=== PATIENT | female | born 1965 | race Caucasian/White ===

== ENCOUNTER 2016-06-25 14:25 | Emergency (ER) | payer OTHER ==
[~2016-06-25] VITALS: Ht 175.3 cm; Wt 59.1 kg
[~2016-06-25 14:25] MED LIST: ALPR0.25 PO; FLUO40CA12 PO; NAPR500T PO; ZLP10T PO
[2016-06-25 14:27] VITALS: BP 128/88; PULSE 73; RESP 18; O2SAT 96
--- NOTE | 2016-06-25 15:07 | ED.REPORT ---
HPI-Abd Pain F 40 and Over Date of Service Jun 25, 2016 ED Provider: David Koehler MD A 51 year old female with a history of recent illness following a vacation to [place] presents to the ED complaining of a possible kidney infection. She began to experience lower abdominal "burning" three days ago, accompanied by nausea, fatigue, low grade fever, chills, constipation, and kidney pain. Her last bowel movement was five days ago. She denies vomiting, dysuria, or changes in eating or drinking habits. The kidney pain became severe enough this morning that she saw her PCP. She was referred to the ED after being diagnosed with a UTI. The pt has no history of similar symptoms. Nursing Notes Stated Complaint: POSSIBLE UTI AND SORE KIDNEYS Chief Complaint: Female Abdominal Pain Nursing Notes Reviewed: Yes Allergies: Coded Allergies: No Known Allergies (Unverified , 06/25/16) Scheduled Cephalexin (Cephalexin) 500 Mg Capsule 500 MG PO QID Fluoxetine (Prozac) 40 Mg Capsule 40 MG PO DAILY Scheduled PRN Alprazolam (Xanax) 0.25 Mg Tablet 0.25 MG PO QID PRN PRN For Anxiety Hydrocodone-Acetaminophen 5-325 mg (Hydrocodone-Acetaminophen 5-325 mg) 1 Each Tablet 1-2 TABLET PO Q4H PRN PRN For Pain Naproxen (Naprosyn) 500 Mg Tablet 500 MG PO BID PRN PRN For Pain Ondansetron ODT (Zofran ODT) 4 Mg Tablet 4 MG PO Q4H PRN PRN For Nausea Zolpidem (Ambien) 10 Mg Tablet 10 MG PO HS PRN PRN For Insomnia General Time Seen by MD: 15:06 Chief Complaint Flank pain left Hx Obtained From: Patient Arrived By: Walk-in Sudden in Onset?: No Onset Occurred: 3 days ago Symptom Duration: Since onset Recent Healthcare: No recent hospitalization, Recent doctor visit Similar Sx Previous: No Past Medical History Past Medical History depression anxiety Past Surgical History Reports: Tonsillectomy Smoking History Former Smoker Social History Alcohol Use: "Social" Ambulatory Status Independent Review of Systems denies changes in eating or drinking habits Constitutional: Reports: Chills, Fatigue, Fever Respiratory: Denies: Non-productive cough, Shortness of breath Cardiovascular: Denies: Chest pain GI: Reports: Abdominal pain, Constipation, Nausea, Denies: Diarrhea, Vomiting Female: Reports: Flank pain, Denies: Dysuria Musculoskeletal: Denies: Back pain, Neck pain Complete sys rev & neg: except as marked. Physical Exam Vital Signs Vital Signs (First) Date Time Temp Pulse Resp B/P Pulse Ox O2 Delivery O2 Flow Rate FiO2 06/25/16 14:27 36.4 73 18 128/88 96 Room Air Initial VS: Reviewed General/Constitutional: Awake, Alert Respiratory / Chest: Atraumatic, Breath sounds NL, Breath sounds = bilat, No respiratory distress Cardiovascular: Heart rate NL, Regular rhythm, Heart sounds NL Abdomen: Atraumatic, Soft, BS normoactive left periumbilical tenderness Back: Atraumatic, Full range of motion left CVAT Head / Eyes: Atraumatic, Normocephalic, PERRL, EOMI ENT: Atraumatic, Airway patent, Mucous membranes moist Skin: Atraumatic, Color NL, No rash, Warm, Dry Neurologic: Oriented X3, Speech NL, No motor deficits, No sensory deficits Neck: Atraumatic, Supple, Full range of motion Upper Extremity / MS: Atraumatic, Full range of motion Lower Extremity / Pelvis / MS: Atraumatic, Full range of motion Psychiatric: Affect NL, Mood NL Interpretation & Diagnostics Lab Results Interpretation Result Diagram: 06/25/16 1535 06/25/16 1535 Test 06/25/16 15:15 06/25/16 15:35 06/25/16 16:02 Hold Urine Received (Received) White Blood Count 9.9th/mm3 (3.8-10.1) Red Blood Count 3.99mil/mm3 (3.90-5.20) Hemoglobin 12.7g/dL (12.0-15.6) Hematocrit 37.3% (35.0-46.0) Mean Corpuscular Volume 93.5fL (81-100) Mean Corpuscular Hemoglobin 31.8pg (27.0-35.0) Mean Corpuscular Hemoglobin Concent 34.0% (32.0-37.0) Red Cell Distribution Width 12.1% (12.3-15.4) Platelet Count 279bil/L (150-400) Neutrophils (%) (Auto) 80.5% (40-74) Lymphocytes (%) (Auto) 9.7% (14-46) Monocytes (%) (Auto) 8.4% (4-12) Eosinophils (%) (Auto) 1.1% (0-5) Basophils (%) (Auto) 0.2% (0-3) Sodium Level 135mEq/L (134-144) Potassium Level 3.7mEq/L (3.5-5.2) Chloride Level 95mEq/L (97-108) Carbon Dioxide Level 24mmol/L (18-29) Blood Urea Nitrogen 16mg/dL (6-24) Creatinine 0.77mg/dL (0.57-1.00) Estimat Glomerular Filtration Rate 112mL/min (>59) Glucose Level 103mg/dL (60-99) Lactic Acid Level 1.2mmol/L (0.4-2.0) Calcium Level 9.3mg/dL (8.5-10.1) Total Bilirubin 0.8mg/dL (0.0-1.2) Aspartate Amino Transf (AST/SGOT) 19U/L (0-50) Alanine Aminotransferase (ALT/SGPT) 16U/L (0-32) Alkaline Phosphatase 65U/L (25-150) Total Protein 6.9g/dL (6.4-8.4) Albumin 4.0g/dL (3.4-5.0) Urine Color Straw (YELLOW) Urine Appearance Cloudy (CLEAR,HAZY) Urine pH 6.5 (5.0-8.0) Urine Specific [place] 1.010 (1.003-1.035) Urine Protein Tracemg/dL (NEG,TRACE) Urine Glucose (UA) Negativemg/dL (NEGATIVE) Urine Ketones Negativemg/dL (NEGATIVE) Urine Occult Blood Moderate (NEGATIVE) Urine Nitrite Negative (NEGATIVE) Urine Bilirubin Negative (NEGATIVE) Urine Urobilinogen Normalmg/dL (NORMAL) Urine Leukocyte Esterase Moderate (NEGATIVE) Urine RBC 3-10/hpf (0-2) Urine WBC Packed/hpf (0-5) Urine Epithelial Cells Moderate/hpf (NONE-MOD) Urine Crystals None seen (NONE SEEN) Urine Bacteria Many/hpf (NONE-FEW) Urine Hyaline Casts None/lpf (NONE) Urine Granular Casts None seen (NONE SEEN) Urine Waxy Casts None seen (NONE SEEN) Urine Red Blood Cell Casts None seen (NONE SEEN) Urine White Blood Cell Casts None seen (NONE SEEN) Urine Mucus None seen (None Seen) Urine Trichomonas None seen (NONE SEEN) Urine Yeast None (NONE SEEN) Urinalysis Comment Amorphous sediment Urine Culture Reflexed Indicated Re-Eval/Medical Decision Source of Hx: Old records Re-Evaluation/Progress #1: Time of Eval: 17:16 Patient Status: Condition improved Re-Evaluation/Progress Note: Pt rechecked, who is resting comfortably. She is informed of lab progress. Re-Evaluation/Progress #2: Time of Eval: 17:54 Patient Status: Condition improved Re-Evaluation/Progress Note: Pt rechecked, who is feeling well and prepared for discharge. Lab results, diagnosis, and the plan for discharge are discussed. The pt understands and agrees with the plan. All questions are addressed at this time. Counseled Regarding: Diagnosis, Lab results, Need for follow-up, When/why to return to ED Discharge & Departure Primary Impression: Pyelonephritis Disposition: Home Discharge Condition All VS Reviewed: Yes Condition: Stable Patient Instructions: Acute Pyelonephritis (ED) Additional Instructions: Emergency Department evaluation included interview, examination and laboratories. We started antibiotics with IV antibiotics that will cover you for 24 hours. Take cephalexen as prescibed, hydrocodone/apap 1-2 every 4 hours as needed for pain. ondansetron as needed for nausea. plan to rest, get adequate fluids and re-check with primary care in about 5 days. return to ED for uncontrolled pain, increasing weakness, frequent vomiting. Referrals: ARIK COBB MD (PCP) Carlos Attestation Portions of this note were transcribed by Roxy Delatorre I, Dr. Koehler personally performed the history, physical exam and medical decision-making; I reviewed and confirmed the accuracy of the information in the transcribed note. Signed by: Carlos Cunha, 06/25/16 and 18:40. copies to: ARIK COBB MD, Donald L MD Jun 25, 2016 15:07 ROXY DELATORRE Jun 25, 2016 15:28
[2016-06-25] MEDS ORDERED: 0.9% Sodium Chloride 1,000 ML IV ONE (15:19)
[2016-06-25] MEDS: HYDROmorphone 0.5 mg/0.5 mL iSecure Syringe IVPUSH PRN ×2 (15:59→17:03)
[2016-06-25] MEDS: Ondansetron 2 mg/mL 2 mL Inj IV PRN ×2 (15:59→17:03)
[2016-06-25] MEDS ORDERED: cefTRIAXone Inj 2 GM in IV Premix 1 EACH IV ONE (16:35)
[2016-06-25 16:36] LABS: BASOPHILS % (AUTO) 0.2 % (0-3); EOSINOPHILS % (AUTO) 1.1 % (0-5); MONOCYTES % (AUTO) 8.4 % (4-12); Mean Corpuscular Hemoglobin 31.8 pg (27.0-35.0); Mean Corpuscular Volume 93.5 fL (81-100); NEUTROPHILS % (AUTO) 80.5 % (40-74); Platelet Count 279 bil/L (150-400)
[2016-06-25] MEDS ORDERED: cefTRIAXone Inj 2,000 MG in Dextrose 5% Minibag Plus 50 ML IV ONE (16:43)
[2016-06-25 16:53] LABS: APPEARANCE,URINE CLOUDY (CLEAR,HAZY); COLOR,URINE STRAW (YELLOW); OCCULT BLOOD,URINE MODERATE (NEGATIVE); PH,URINE 6.5 (5.0-8.0); UROBILINOGEN,URINE NORMAL (NORMAL)
[2016-06-25] MEDS ORDERED: oxyCODONE-Acetamin 5-325 mg Tablet PO ONE (18:00)
[2016-06-25] MEDS ORDERED: HYDR-4003 PO (18:06)
[2016-06-25] MEDS ORDERED: CEPH500C PO (18:06)
[2016-06-25] MEDS ORDERED: ONDA4TAB9 PO (18:06)
[2016-06-25 18:26] VITALS: BP 129/82; PULSE 89; RESP 17; O2SAT 98
== END 2016-06-25 18:27 | disposition home or self-care (01) ==
LOC: SED 14:25
DX: N12 Tubulo-interstitial nephritis, not specified as acute or chronic (principal); B96.20 Unspecified Escherichia coli [E. coli] as the cause of diseases classified elsewhere; Z87.891 Personal history of nicotine dependence
CPT/HCPCS: 36415; 80053; 81000; 83605; 85025; 87086; 87088; 87186; 96361; 96365; 96372; 96375; 96376; 99285; J0696; J1170; J2405; J7030

== ENCOUNTER 2016-06-27 06:19 | Emergency (ER) | payer OTHER ==
[~2016-06-27] VITALS: Ht 175.3 cm; Wt 59.1 kg
[~2016-06-27 06:19] MED LIST changes: +CEPH500C PO; +HYDR-4003 PO; +ONDA4TAB9 PO
[2016-06-27 06:23] VITALS: BP 102/72; PULSE 78; RESP 16; O2SAT 97
--- NOTE | 2016-06-27 06:49 | ED.REPORT ---
HPI-General Illness Date of Service Jun 27, 2016 ED Provider: Deuce Sanon MD 51 year old female with no significant medical history who was seen and evaluated 06/25/16 due to concern for possible pyelonephritis. Her symptoms started 5 days ago with lower abd pain and dysuria. Two days ago she developed flank pain and was unable to walk without pain. Pt was then seen in the ED. Lab studies included CBC and CMP which were unremarkable as well as a UA that demonstrated moderate epithelial cells, many bacteria, moderate leuk esterase. She was given 1 dose of IV Ceftriaxone and discharged on Keflex and sent back by her PCP due to worsening symptoms today. After antibiotics her flank pain and dysuria has improved but now has fever (101), chills, malaise, constipation , fatigue, nausea, and headache.Pt denies cough, vomiting, vaginal discharge. Pt denies any history of STI's. Urine culture from that visit growing gram negative rods probably E.coli but susceptibilities have not yet shanika determined. Nursing Notes Stated Complaint: POSSIBLE KIDNEY INFECTION Chief Complaint: Back Pain or Injury Nursing Notes Reviewed: Yes Allergies: Coded Allergies: No Known Allergies (Unverified , 06/27/16) Scheduled Cephalexin (Cephalexin) 500 Mg Capsule 500 MG PO QID Fluoxetine (Prozac) 40 Mg Capsule 40 MG PO DAILY Sulfamethoxazole/Trimeth 800-160 mg (Bactrim DS) 1 Each Tablet 1 TABLET PO BID Scheduled PRN Alprazolam (Xanax) 0.25 Mg Tablet 0.25 MG PO QID PRN PRN For Anxiety Hydrocodone-Acetaminophen 5-325 mg (Hydrocodone-Acetaminophen 5-325 mg) 1 Each Tablet 1-2 TABLET PO Q4H PRN PRN For Pain Naproxen (Naprosyn) 500 Mg Tablet 500 MG PO BID PRN PRN For Pain Ondansetron ODT (Zofran ODT) 4 Mg Tablet 4 MG PO Q4H PRN PRN For Nausea Ondansetron ODT (Zofran ODT) 4 Mg Tablet 4 MG PO Q4H PRN PRN For Nausea Zolpidem (Ambien) 10 Mg Tablet 10 MG PO HS PRN PRN For Insomnia General Time Seen by : 06:41 Chief Complaint Fever, Not feeling well Hx Obtained From: Patient Arrived By: Walk-in Sudden in Onset?: No Onset Occurred: 5 days ago Symptom Duration: Since onset Location: : Back Quality: Painful Severity: Current: Mild Associated with: Reports: Fever, Headache, Nausea, Denies: Cough, Shortness of breath, Vomiting Relieved by: Prescription meds Recent Healthcare: Recent doctor visit Past Medical History Past Medical History depression anxiety Past Surgical History Reports: Tonsillectomy Smoking History Former Smoker Social History Alcohol Use: "Social" Ambulatory Status Independent Review of Systems Full Review of Systems Constitutional: Reports: Chills, Fatigue, Fever, Malaise Respiratory: Denies: Non-productive cough, Shortness of breath Cardiovascular: Denies: Chest pain GI: Reports: Constipation, Nausea, Denies: Abdominal pain, Diarrhea, Vomiting Female: Reports: Dysuria, Flank pain, Denies: Vaginal discharge Musculoskeletal: Denies: Extremity pain, Neck pain Skin: Denies Diaphoresis, Denies Rash Neurologic: Reports: Headache, Denies: Change LOC Complete sys rev & neg: except as marked. Physical Exam Vital Signs Vital Signs Date Time Temp Pulse Resp B/P Pulse Ox O2 Delivery O2 Flow Rate FiO2 06/27/16 09:06 36.6 88 98/63 06/27/16 06:23 36.6 78 16 102/72 97 Room Air Initial VS: Reviewed General/Constitutional: Well-developed, Well-nourished Head / Eyes: Atraumatic, Normocephalic, PERRL ENT: Mucous membranes moist, Conjunctiva normal, No scleral icterus Neck: Supple, Full range of motion Abdomen / GI: Soft, Non-tender, No guarding, No rebound, No distention Extremities: Vascular intact, Neuro intact, No swelling (at calf), No tenderness (at calf) Skin: Warm, Dry, No cyanosis (No rash) Neurologic: Alert, Oriented, Nonfocal Psychiatric: Mood/affect normal, Behavior normal, Normal thought content Respiratory / Chest: Breath sounds NL, Breath sounds = bilat, No respiratory distress, No rales, No rhonchi, No wheezing Cardiovascular: Heart rate NL, Regular rhythm, Heart sounds NL, No gallop, No murmurs, No rubs, Cap refill not delayed, Peripheral circulation NL Back: Atraumatic, Full range of motion Mild percussive tenderness to L flank which she states is less than prior Interpretation & Diagnostics Lab Results Interpretation Test 06/27/16 06:35 Urine Color Yellow (YELLOW) Urine Appearance Clear (CLEAR,HAZY) Urine pH 6.0 (5.0-8.0) Urine Specific [place] 1.015 (1.003-1.035) Urine Protein Tracemg/dL (NEG,TRACE) Urine Glucose (UA) Negativemg/dL (NEGATIVE) Urine Ketones Tracemg/dL (NEGATIVE) Urine Occult Blood Large (NEGATIVE) Urine Nitrite Negative (NEGATIVE) Urine Bilirubin Negative (NEGATIVE) Urine Urobilinogen Normalmg/dL (NORMAL) Urine Leukocyte Esterase Small (NEGATIVE) Urine RBC 3-10/hpf (0-2) Urine WBC 6-10/hpf (0-5) Urine Epithelial Cells Few/hpf (NONE-MOD) Urine Crystals None seen (NONE SEEN) Urine Bacteria Few/hpf (NONE-FEW) Urine Hyaline Casts None/lpf (NONE) Urine Granular Casts None seen (NONE SEEN) Urine Waxy Casts None seen (NONE SEEN) Urine Red Blood Cell Casts None seen (NONE SEEN) Urine White Blood Cell Casts None seen (NONE SEEN) Urine Mucus None seen (None Seen) Urine Trichomonas None seen (NONE SEEN) Urine Yeast None (NONE SEEN) Urinalysis Comment None Urine Culture Reflexed Indicated Hold Urine Received (Received) General Lab Results Interp 1: Labs reviewed Re-Eval/Medical Decision Med Decision/Clinical Course In summary, the patient is a 51 year old female with no significant medical history who was seen and evaluated in this emergency department on 06/25/16 due to concern for possible pyelonephritis. At that time, lab studies included CBC and CMP which were unremarkable as well as a UA that demonstrated moderate epithelial cells, many bacteria, moderate leuk esterase. She was given 1 dose of IV Ceftriaxone and discharged on Keflex and sent back to ED today by her PCP due to worsening symptoms. Urine culture from earlier visit 3 days ago growing gram negative rods "probably E.coli" but susceptibilities have not yet been determined. Emergency department the patient is afebrile, hemodynamically stable and nontoxic in appearance. Examination is notable for some percussive left flank tenderness. The patient was treated with the below medications: Zofran, Ibuprofen Urinalysis today was notable for Small leukesterase, Few bacteria, Large blood. Overall presentation clinically concerning for pyelonephritis that is not completely responded to outpatient antibiotic treatment with Keflex. Given absence of sensitivity results called to retrieve tailor appropriate therapy at this time. The patient is afebrile, he was relatively stable and nontoxic in appearance. I do not feel that she requires IV antibiotics or hospitalization. I had a long discussion with the patient and we opted to empirically switch her therapy from Keflex to Bactrim. She has been advised to follow up with her primary care physician in the next 24 hours for recheck. She has been advised to call back to the emergency department for culture results to confirm that Bactrim is the appropriate antibiotic in the next 24 hours as I expect culture results should be due back any time now. She has been advised to return immediately should she develop any fevers, chills, vomiting or worsening symptoms. She is currently in menopause and there are no findings suggestive of , ectopic , acute surgical intra-abdominal process or STI/ PID. Patient was discharged in stable condition and verbalized understanding and agreement with the plan. Time of Eval: 08:11 Patient Status: Condition improved Re-Evaluation/Progress Note: Updated pt of labs, and imaging results. Discussed plan for discharge and follow up. All questions addressed. Counseled Regarding: Diagnosis, Lab results, Need for follow-up, When/why to return to ED Discharge & Departure Primary Impression: Pyelonephritis Additional Impressions: Fever and chills Dysuria Disposition: Home Discharge Condition All VS Reviewed: Yes Condition: Improved Additional Instructions: Thank you for seeking care at [facility] emergency room. It is difficult for us to make definitive diagnoses in the ED but we believe that you are experiencing a UTI. Our primary goal today in the ED was to evaluate you for any life-threatening conditions. Your evaluation was reassuring. You will be discharged with a prescription for Bactrim. Please take this as directed and discontinue taking the Keflex. You can take the Zofran as needed for nausea. You should follow-up with your primary doctor in the next 24 hours. You should return to the ED immediately if you develop fevers, chills, nausea, vomiting, cough, shortness of breath, chest pain, lightheadedness, weakness, if your symptoms are not improving or for any other concerning signs or symptoms. Thank you for letting us partake in your care today. Referrals: ARIK COBB MD (PCP) Scribe Attestation Portions of this note were transcribed by Odessa Zamora. I, (Dr. Sanon) personally performed the history, physical exam and medical decision-making; I reviewed and confirmed the accuracy of the information in the transcribed note. Signed by: Odessa Zamora. Carlos, 06/27/2016, 0827 copies to: ARIK COBB MD, Beck O MD Jun 27, 2016 06:49 Odessa Zamora Jun 27, 2016 07:10
[2016-06-27] MEDS ORDERED: ONDA4TAB9 PO (07:06)
[2016-06-27] MEDS ORDERED: SULF1TAB7 PO (07:06)
[2016-06-27] MEDS ORDERED: Ondansetron 8 mg ODT Tablet PO ONE (07:10)
[2016-06-27 07:42] LABS: APPEARANCE,URINE CLEAR (CLEAR,HAZY); COLOR,URINE YELLOW (YELLOW)
[2016-06-27 07:43] LABS: OCCULT BLOOD,URINE LARGE (NEGATIVE); UROBILINOGEN,URINE NORMAL (NORMAL)
[2016-06-27 09:06] VITALS: BP 98/63; PULSE 88
== END 2016-06-27 08:30 | disposition home or self-care (01) ==
LOC: SED 06:19
DX: N10 Acute pyelonephritis (principal); R50.9 Fever, unspecified; R30.0 Dysuria; Z87.891 Personal history of nicotine dependence